=== PATIENT | female | born 1950 | race Caucasian/White ===

== ENCOUNTER → 2020-06-13 | Outpatient (CLI) | payer MEDICARE ==
[~2020-06-13] MED LIST: HYDROCODON-ACE1 EAC4 PO
== END ==
LOC: HEART 5 16:00
DX: J44.9 Chronic obstructive pulmonary disease, unspecified (principal); R94.2 Abnormal results of pulmonary function studies; F17.210 Nicotine dependence, cigarettes, uncomplicated
CPT/HCPCS: 94060; 94729

== ENCOUNTER → 2020-07-19 | Outpatient (CLI) | payer MEDICARE | LOC: RT 12:55 | DX: G47.34 Idiopathic sleep related nonobstructive alveolar hypoventilation (principal); M54.2 Cervicalgia; R93.7 Abnormal findings on diagnostic imaging of other parts of musculoskeletal system | CPT/HCPCS: 36600; 72040; 82803 ==

== ENCOUNTER 2020-08-22 22:39 | Emergency (ER) | payer MEDICARE ==
[2020-08-23] MEDS ORDERED: HYDROCODON-ACE1 EAC4 PO ×2 (00:07→00:47)
== END 2020-08-23 00:53 | disposition home or self-care (01) ==
LOC: ER1 22:39
DX: S52.501A Unspecified fracture of the lower end of right radius, initial encounter for closed fracture (principal); J44.9 Chronic obstructive pulmonary disease, unspecified; K21.9 Gastro-esophageal reflux disease without esophagitis; F17.200 Nicotine dependence, unspecified, uncomplicated; W19.XXXA Unspecified fall, initial encounter
CPT/HCPCS: 29125; 73110; 99283